=== PATIENT | male | born 1945 | race Caucasian/White ===

== ENCOUNTER 2017-04-17 15:09 | Inpatient (IN) | payer OTHER ==
[~2017-04-17] VITALS: Ht 170.2 cm; Wt 100.0 kg
[2017-04-17 15:13] VITALS: Ht 170.2 cm; Wt 100.0 kg
[2017-04-17 15:44] LABS: ADD SCAN DIFF NO
[2017-04-17 15:49] LABS: BASOPHILS % 0.4 % (0.0-2.0); EOSINOPHILS # 0.1 10^3/ul (0.0-0.5); EOSINOPHILS % 1.8 % (0.0-7.0); HEMATOCRIT 44.8 % (42.0-52.0); HEMOGLOBIN 15.8 g/dl (14.0-18.0); LYMPHOCYTES # 1.9 10^3/ul (0.8-2.9); LYMPHOCYTES % 34.4 % (15.0-51.0); MEAN CORPUSCULAR HEMOGLOBIN 29.8 pg (29.0-33.0); MEAN CORPUSCULAR HGB CONC 35.3 g/dl (32.0-37.0); MEAN CORPUSCULAR VOLUME 84.5 fl (82.0-101.0); MEAN PLATELET VOLUME 11.3 fl (7.4-10.4); MONOCYTE # 0.5 10^3/ul (0.3-0.9); MONOCYTES % 8.6 % (0.0-11.0); NEUTROPHILS % 54.3 % (39.0-77.0); PLATELET COUNT 150 10^3/UL (140-415); RED CELL DISTRIBUTION WIDTH 12.4 % (11.5-14.5); WHITE BLOOD COUNT 5.5 10^3/ul (4.8-10.8)
[2017-04-17 16:08] LABS: INR 0.93; PARTIAL THROMBOPLASTIN TIME 25.5 Sec (25.0-35.0); PROTIME 12.5 Sec (12.2-14.2)
[2017-04-17] MEDS ORDERED: SOD CHLORIDE 0.9% 100 ML ONE (16:12)
[2017-04-17] MEDS ORDERED: IODIXANOL LOCM 100 ML BTL ONE (16:12)
--- NOTE | 2017-04-17 16:21 | RADRPT ---
PROCEDURE: Chest Radiograph. CLINICAL INDICATION: Stroke. TECHNIQUE: Single frontal chest radiograph. COMPARISON: None available FINDINGS: The cardiomediastinal silhouette is within normal limits. No infiltrate or effusion is seen. Th e bones are intact. IMPRESSION: 1. Unremarkable chest radiograph. RPTAT: KK .Matty Klein MD, MD Date Time Electronically viewed and signed by .Matty Klein MD, on 04/17/2017 16:21 .B/
[2017-04-17 16:23] LABS: ANION GAP 18 (8-16); BLOOD UREA NITROGEN 11 mg/dl (7-20); CALCIUM 10.4 mg/dl (8.4-10.2); CARBON DIOXIDE 25 mmol/L (21-31); CHLORIDE 109 mmol/L (97-110); CREATININE 0.93 mg/dl (0.61-1.24); GLUCOSE 225 mg/dl (70-220); POTASSIUM 3.9 mmol/L (3.5-5.1); SODIUM 148 mmol/L (135-144)
[2017-04-17 16:37] LABS: TROPONIN-I < 0.012 ng/ml (0.00-0.12)
[2017-04-17] MEDS ORDERED: SOD CHLORIDE 0.9% 500 ML IV STA (16:41)
[2017-04-17] MEDS ORDERED: GABA300C16 PO (16:42)
[2017-04-17] MEDS ORDERED: FENO54TA7 PO (16:43)
--- NOTE | 2017-04-17 16:43 | RADRPT ---
PROCEDURE: CT Brain without. CLINICAL INDICATION: Right sided facial droop and right-sided numbness. TECHNIQUE: A CT of the brain was performed on multidetector high-resolution CT scanner utilizing a xial sections from the skull base through the vertex without contrast. The scan was reviewed in sof t tissue brain and high frequency resolution bone algorithm windows. Images were reviewed on a high -resolution PACS workstation. One or more the following does reduction techniques were utilized: Aut omated exposure control, adjustment of the mA/ or kV according to patient's size, or use of iterativ e reconstruction technique. The exam CTDI = 42.16 mGy and the DLP = 720.23 mGy-cm. COMPARISON: None available. FINDINGS: The ventricles and sulci are mildly prominent indicative of volume loss. There is no intracranial he morrhage, mass effect or midline shift. No abnormal intra-axial or extra-axial fluid collections ar e seen. The lancaster/white matter differentiation is preserved. There is a dural-based isodense mass overlying left frontal lobe measuring 13 x 5 x 15 mm (AP x durham sverse x craniocaudal) which may represent a meningioma. Partially empty sella is noted. There are mild scattered foci of hypoattenuation in the white matter, which are nonspecific in etiol ogy but likely reflect chronic small vessel ischemic changes. There are mild intracranial vascular calcifications consistent with atherosclerosis. The visualized paranasal sinuses are essentially brandi ar. Postsurgical changes of prior left frontal craniotomy are noted. IMPRESSION: 1. No acute intracranial hemorrhage, transcortical infarction or mass effect. Please note MRI is mo re sensitive for detection of acute ischemia and can be obtained as clinically warranted. 2. Mild intracranial atherosclerosis and chronic small vessel ischemic changes. 3. Left frontal 15 mm dural-based mass which may represent a meningioma. Brain MRI with contrast ca n be obtained for further evaluation. 4. Partially empty sella. 5. Mild generalized cerebral volume loss. A call report was made and above findings were discussed and acknowledged by Sharonda Acharya on 04/17/2017 4:38 PM . RPTAT: UU .Farrudolph Bailon MD, MD Date Time Electronically viewed and signed by .Corby Bailon MD, MD on 04/17/2017 16:43 .N/
[2017-04-17] MEDS ORDERED: ASPI-664 PO (16:44)
[2017-04-17] MEDS ORDERED: ALPR0.5T6 PO (16:45)
[2017-04-17] MEDS ORDERED: DOXA2TAB PO (16:45)
[2017-04-17] MEDS ORDERED: METF1000 PO (16:47)
[2017-04-17] MEDS ORDERED: LEVE500T8 PO (16:47)
[2017-04-17] MEDS ORDERED: ZOLP10TA5 PO (16:47)
[2017-04-17] MEDS ORDERED: METO-407 PO (16:48)
[2017-04-17] MEDS ORDERED: GLIP-95 PO (16:48)
[2017-04-17] MEDS ORDERED: SIMV40TA2 PO (16:49)
[2017-04-17] MEDS ORDERED: LEVO125T75 PO (16:49)
[2017-04-17] MEDS ORDERED: OMEP20CA16 PO (16:50)
[2017-04-17] MEDS ORDERED: ALBU18HF INHALATION (16:51)
--- NOTE | 2017-04-17 16:56 | RADRPT ---
PROCEDURE: CTA head and neck CLINICAL INDICATION: Right sided facial droop, right-sided numbness. TECHNIQUE: The study was performed utilizing multidetector CT scanner. Direct thin section axial s ections were obtained through the head and neck after the uneventful administration of 100 cc of Vis ipaque 320 nonionic intravenous contrast material. Coronal and sagittal as well as maximal intensit y projection reformations were obtained. 3-D images were made. The images were reviewed on a PACS w orkstation. One or more the following does reduction techniques were utilized: Automated exposure co ntrol, adjustment of themA/ or kV according to patient's size, or use of iterative reconstruction te chnique. The total CTDIvol is 17.97, 57.75 mGy and the DLP is 776.92 mGy-cm. COMPARISON: Brain CT of the same day. FINDINGS: CTA NECK: The origins of the great vessels off the aortic arch are patent without significant stenosis. Mild calcified and noncalcified atherosclerotic plaques are noted involving left carotid bulb without sig nificant stenosis by NASCET criteria. The remainder of common carotid and internal carotid arteries are patent without significant stenosis by NASCET criteria. Direct measurements of vessel diameters was made in reference to measurements of the distal internal carotid artery diameter. The vertebral arteries are also patent without high-grade stenosis. CTA BRAIN: There are atherosclerosis calcifications of cavernous and supraclinoid segments of the internal dickerson tid arteries without significant stenosis. The petrous segments of internal carotid arteries are pat ent without significant stenosis. The proximal middle cerebral arteries and anterior cerebral arteri es are patent without significant stenosis. The intracranial vertebral arteries, basilar artery, an d posterior cerebral arteries are also unremarkable without significant stenosis. No aneurysm or va scular malformation is identified. Dural-based 15 mm left frontal mass seen on prior CT demonstrates mild homogeneous enhancement which likely represents a meningioma. IMPRESSION: 1. Mild calcified and noncalcified atherosclerotic plaques involving left carotid bulb without sig nificant stenosis by NASCET criteria. 2. Mild intracranial atherosclerotic calcifications. 3. Otherwise no significant stenosis of major intracranial and neck arteries. 4. Images enhancing 15 mm dural-based left frontal mass which likely represents a meningioma. A call report was made and above findings were discussed and acknowledged by Sharonda Acharya on 04/17/2017 4:38 PM. RPTAT: UU .Corby Bailon MD, MD Date Time Electronically viewed and signed by .Corby Bailon MD, MD on 04/17/2017 16:56 .N/
[2017-04-17] MEDS ORDERED: ACETAMINOPHEN 325 MG TAB PO PRN (17:30)
[2017-04-17] MEDS ORDERED: ASPIRIN 81 MG TAB PO ONE (17:30)
[2017-04-17] MEDS ORDERED: ONDANSETRON 4 MG INJ IV PRN (17:30)
[2017-04-17] MEDS ORDERED: NACL 0.9% 3 ML SYG IV SCH (17:30)
--- NOTE | 2017-04-17 17:40 | HP ---
Date/Time of Note Date/Time of Note DATE: 04/17/17 TIME: 17:40 Assessment/Plan VTE Prophylaxis VTE Prophylaxis Intervention: SCD's Assessment/Plan Assessment/Plan 71 yo M with multiple risk factors for cerebrovascular disease (htn, dm, HL), admitted for an episode of R sided weakness and facial droop concerning for TIA v small CVA PLAN -tele monitoring -MRI brain, MRA neck -TTE -lipids -a1c -cont home asa -uptitrate statin to atorva 40, cont home tricor #HL: statin change as above, cont home fibrate #HTN: cont home meds #DM2: hold oral agents, SSI and accuchecks cont home neurontin #h/o meningioma: cont home AED #hypothyroid: cont home synthroid ?insomina: cont home ambien cardiac diet consider neuro consult in AM if source of event unclear prophx: SQH, SCDs HPI/ROS Admit Date/Time Admit Date/Time Hx of Present Illness 71 yo male with a history of diabetes, hypertension, previous TIA ~2 mos ago, and left-sided meningioma status post craniotomy 10 years ago presented with an episode of R sided facial, arm and leg weakness. Symptoms began around 10am, by the time pt presented to the ER this afternoon his symptoms had improved a great deal No fevers or chills. Pt's main concern at this time is the wellbeing of his dogs while he is in the hospital ROS 10pROS neg except as per HPI PMH/Family/Social Past Medical History HTN, DM2 with neuropathy, HL, h/o TIA, h/o meningioma, hypothyroid, insomnia Past Surgical History sp meningioma resection Social History lives alone in the community, has 2 dogs Smoking Status: Never smoker Exam/Review of Systems Vital Signs Vitals Vital Signs Date Time Temp Pulse Resp B/P Pulse Ox O2 Delivery O2 Flow Rate FiO2 04/17/17 15:13 98.1 79 20 159/79 99 Exam Exam nad, very pleasant, +mild R sided facial droop CN 2-12 intact-->smile symmetric 5/5 strength bl U and LEs, sensorium grossly intact no carotid bruits bl rrr no mrg lungs clear abd soft no rashes no le edema ED imaging and labs reviewed. Brain imaging with evidence of previous meningioma Labs Result Diagram: 04/17/17 1540 04/17/17 1540 Medications Medications Current Medications Aspirin (Aspirin) 81 mg DAILY PO ; Start 04/18/17 at 09:00; Status UNV Heparin Sodium (Porcine) (Heparin (5000 Units/0.5 ml)) 5,000 unit Q8 SC ; Start 04/17/17 at 22:00; Status UNV FRANSISCA PIZARRO MD Apr 17, 2017 17:40
--- NOTE | 2017-04-17 17:55 | ERA ---
ER Documentation Chief Complaint Date/Time DATE: 04/17/17 TIME: 17:45 Chief Complaint RIGHT FACIAL DROOP ONSET IN THE MORNING, RIGHT LEG, ARM WEAKNESS, ONSET 1 HPI 71-year-old male with a history of diabetes, hypertension, and left-sided meningioma status post craniotomy 10 years ago presenting with right-sided weakness and numbness. He also has right-sided facial weakness and tingling. His symptoms started around 9:30 AM when he found out he was being evicted from his apartment. He went to sit on the couch and tried to relax but his symptoms did not resolve. He drove himself to the hospital. Currently he says that his speech and his right leg weakness and numbness have improved, however he feels very weak in his right arm. He denies any associated headache but has had blurry vision since last night. No nausea, vomiting, fever, chills, dysuria. No recent illnesses. He states that a few months ago he had similar symptoms and was evaluated in the ED but discharged home. ROS All systems reviewed and are negative except as per history of present illness. Medications Home Meds Reported Medications Albuterol Sulfate* (Ventolin HFA*) 18 Gm Hfa.aer.ad, 2 PUFF INHALATION Q4H, #1 INHALER 04/17/17 Omeprazole* (Omeprazole*) 20 Mg Capsule.dr, 20 MG PO DAILY Y for QAM, #30 CAP 04/17/17 Levothyroxine Sodium* (Levothyroxine Sodium*) 125 Mcg Tablet, 125 MCG PO BEFORE BREAKFAST, #30 TAB 04/17/17 Simvastatin* (Zocor*) 40 Mg Tablet, 40 MG PO DAILY, #30 TAB 04/17/17 Metoprolol Tartrate* (Lopressor*) 100 Mg Tablet, 100 MG PO BID, #60 TAB 04/17/17 Glipizide* (Glipizide*) 10 Mg Tablet, 10 MG PO AC BREAKFAST DINNER, TAB 04/17/17 Zolpidem Tartrate* (Zolpidem Tartrate*) 10 Mg Tablet, 10 MG PO QHS Y for INSOMNIA, #30 TAB 04/17/17 Metformin Hcl* (Metformin Hcl*) 1,000 Mg Tablet, 1000 MG PO WITH BREAKFAST DINNE , #60 TAB 04/17/17 Levetiracetam* (Levetiracetam*) 500 Mg Tablet, 500 MG PO BID, TAB TAKE 1 TAB-QAM AND 2 TAB-QHS 04/17/17 Alprazolam* (Alprazolam*) 0.5 Mg Tablet, 0.5 MG PO Q8H Y for ANXIETY, TAB 04/17/17 Doxazosin Mesylate* (Doxazosin Mesylate*) 2 Mg Tablet, 4 MG PO DAILY, TAB 04/17/17 Aspirin* (Aspirin* EC) 81 Mg Tablet.dr, 81 MG PO DAILY, TAB 04/17/17 Fenofibrate, Micronized (Fenofibrate) 54 Mg Tablet, 54 MG PO BID, TAB 04/17/17 Gabapentin* (Gabapentin*) 300 Mg Capsule, 600 MG PO QHS, #180 CAP 04/17/17 Allergies Allergies: Coded Allergies: No Known Allergy (Verified , 04/17/17) PMhx/Soc History of Surgery: Yes (BRAIN TUMOR REMOVAL) Anesthesia Reaction: No Hx Neurological Disorder: Yes (TIA 2 MONTHS AGO) Hx Respiratory Disorders: No Hx Cardiac Disorders: Yes (HTN) Hx Psychiatric Problems: No Hx Miscellaneous Medical Probl: Yes (DM, THYROID, ABDOMINAL HERNIA) Hx Alcohol Use: No Hx Substance Use: No Hx Tobacco Use: No Smoking Status: Never smoker FmHx Family History: diabetes Physical Exam Vitals Vital Signs Date Time Temp Pulse Resp B/P Pulse Ox O2 Delivery O2 Flow Rate FiO2 04/17/17 15:13 98.1 79 20 159/79 99 Physical Exam Const: Well-appearing, nontoxic, no apparent distress Head: Atraumatic Eyes: Normal Conjunctiva, PERRLA, EOMI ENT: Normal External Ears, Nose and Mouth. Neck: Full range of motion..~ No meningismus. Resp: Clear to auscultation bilaterally Cardio: Regular rate and rhythm, no murmurs Abd: Soft, non tender, non distended. Normal bowel sounds Skin: No petechiae or rashes Back: No midline or flank tenderness Ext: No cyanosis, or edema Neur: Awake and alert and oriented 3, right-sided mild facial droop, right upper extremity and right lower extremity strength 4+ out of 5. Left upper and lower extremity strength 5 out of 5. Sensations intact to painful stimuli. Psych: Normal Mood and Affect Result Diagram: 04/17/17 1540 04/17/17 1540 Results 24 hrs Laboratory Tests Test 04/17/17 15:40 White Blood Count 5.510^3/ul Red Blood Count 5.3010^6/ul Hemoglobin 15.8g/dl Hematocrit 44.8% Mean Corpuscular Volume 84.5fl Mean Corpuscular Hemoglobin 29.8pg Mean Corpuscular Hemoglobin Concent 35.3g/dl Red Cell Distribution Width 12.4% Platelet Count 73170^3/UL Mean Platelet Volume 11.3fl Neutrophils % 54.3% Lymphocytes % 34.4% Monocytes % 8.6% Eosinophils % 1.8% Basophils % 0.4% Nucleated Red Blood Cells % 0.0/100WBC Neutrophils # 3.010^3/ul Lymphocytes # 1.910^3/ul Monocytes # 0.510^3/ul Eosinophils # 0.110^3/ul Basophils # 0.010^3/ul Nucleated Red Blood Cells # 0.010^3/ul Prothrombin Time 12.5Sec Prothrombin Time Ratio 1.0 INR International Normalized Ratio 0.93 Activated Partial Thromboplast Time 25.5Sec Sodium Level 148mmol/L Potassium Level 3.9mmol/L Chloride Level 109mmol/L Carbon Dioxide Level 25mmol/L Anion Gap 18 Blood Urea Nitrogen 11mg/dl Creatinine 0.93mg/dl Glucose Level 225mg/dl Hemoglobin A1c 7.4% Calcium Level 10.4mg/dl Troponin I < 0.012ng/ml Current Medications Medications (Trade) Dose Ordered Sig/Cesar Route PRN Reason Start Time Stop Time Status Last Admin Dose Admin IV Flush 10 ml 10 ml STK-MED ONCE .ROUTE 04/17/17 16:12 04/17/17 16:13 DC 04/17/17 16:53 Sodium Chloride (NS) 100 ml @ ud STK-MED ONCE .ROUTE 04/17/17 16:12 04/17/17 16:13 DC 04/17/17 16:53 Iodixanol 100 ml 100 ml STK-MED ONCE .ROUTE 04/17/17 16:12 04/17/17 16:13 DC 04/17/17 16:53 Sodium Chloride (NS) 500 ml @ 500 mls/hr Q1H STAT IV 04/17/17 16:41 04/17/17 17:40 DC 04/17/17 16:51 Ondansetron HCl (Zofran Inj) 4 mg ER BRIDGE PRN IV NAUSEA AND/OR VOMITING 04/17/17 17:30 04/18/17 17:29 Acetaminophen (Tylenol Tab) 650 mg ER BRIDGE PRN PO MILD PAIN/FEVER 04/17/17 17:30 04/18/17 17:29 Aspirin (Aspirin) 324 mg ONCE ONCE PO 04/17/17 17:30 04/17/17 17:31 DC 04/17/17 17:38 IV Flush (NS 3 ml) 3 ml PER PROTOCOL IV 04/17/17 17:30 UNV Aspirin (Aspirin) 81 mg DAILY PO 04/18/17 09:00 UNV Heparin Sodium (Porcine) (Heparin (5000 Units/0.5 ml)) 5,000 unit Q8 SC 04/17/17 22:00 UNV Albuterol (Proventil (O.r. Use Only)) 2 puff Q4H INH 04/17/17 18:00 UNV Alprazolam (Xanax) 0.5 mg Q8H PRN PO ANXIETY 04/17/17 18:00 UNV Doxazosin Mesylate (Cardura) 4 mg DAILY PO 04/18/17 09:00 UNV Gabapentin (Neurontin) 600 mg QHS PO 04/17/17 21:00 UNV Levetiracetam (Keppra) 500 mg BID PO 04/17/17 21:00 UNV Levothyroxine Sodium (Synthroid) 125 mcg BEFORE BREAKFAST PO 04/18/17 07:00 UNV Metoprolol Tartrate (Lopressor) 100 mg BID PO 04/17/17 21:00 UNV Zolpidem Tartrate (Ambien) 10 mg QHS PRN PO INSOMNIA 04/17/17 18:00 UNV Miscellaneous Information 54 mg BID PO 04/17/17 21:00 UNV Miscellaneous Information 20 mg DAILY PRN PO QAM 04/17/17 18:00 UNV Miscellaneous Information 40 mg DAILY PO 04/18/17 09:00 UNV Procedures/MDM EMERGENT LABS AND DIAGNOSTIC STUDIES: Lab Results above were reviewed and interpreted by me. CBC unremarkable, BMP shows hyperglycemia and hypernatremia, troponin normal, elevated hemoglobin A1c 12-lead EKG was interpreted by Fadia Lawrence MD: Normal Sinus Rhythm Normal axis Normal intervals No acute ST or T wave changes suggestive of acute ischemia or STEMI. Radiology Results as interpreted by Radiology below were reviewed by Abraham Lawrence MD: Chest x-ray shows no acute abnormalities CT head shows no acute abnormality CTA head and neck: IMPRESSION: 1. Mild calcified and noncalcified atherosclerotic plaques involving left carotid bulb without significant stenosis by NASCET criteria. 2. Mild intracranial atherosclerotic calcifications. 3. Otherwise no significant stenosis of major intracranial and neck arteries. 4. Images enhancing 15 mm dural-based left frontal mass which likely represents a meningioma. .Corby Bailon MD, MD Date Time Electronically viewed and signed by .Corby Bailon MD, MD on 04/17/2017 16: 56 Initial Nursing notes reviewed. Previous Medical Records requested via the Electronic Health Record. EMERGENCY DEPARTMENT COURSE / MEDICAL DECISION MAKING: Patient is outside the window for TPA. There is no large vessel occlusion seen on the CTA that would be amenable to intervention. IV fluids were given. CT head showed no acute bleed so aspirin was given. Patient's blood pressure is elevated but there is no evidence of hypertensive emergency. Patient's neurologic symptoms are concerning for acute TIA/stroke, infectious, or metabolic cause and will require inpatient workup and continuous monitoring. Further w/u for will be deferred to the inpatient team. Neuro Critical Care: Critical Care Time: 35 minutes Treatments/Evaluations: Continuous neurologic and cardiovascular monitoring for deterioration of neurologic function and complications, while obtaining immediate neurologic imaging. Considerations made for TPA and invasive therapy with discussions with family. TPA Criteria Assessment: Patient is not a TPA candidate because: Last known normal > 3 hours Minimal improving symptoms Accepting Care Team: Current data and ongoing care discussed. Time: Time of admission Primary Provider: [XOXOXO] Consulting: [XOXOXO] Outstanding Data: none Departure Diagnosis: Primary Impression: Acute right-sided weakness Additional Impression: Facial droop Condition: Serious JOSUÉ LAWRENCE MD Apr 17, 2017 17:55
[2017-04-17] MEDS ORDERED: ALPRAZOLAM 0.5 MG TAB PO PRN (18:00)
[2017-04-17] MEDS ORDERED: ZOLPIDEM 5 MG TAB PO PRN (18:00)
[2017-04-17] MEDS ORDERED: NON-FORMULARY/PATIENT OWN MED (Omeprazole* 20 MG) PO PRN (18:00)
[2017-04-17 19:00] VITALS: TEMP 98.9
[2017-04-17 19:46] VITALS: BP 140/81; RESP 18
[2017-04-17 20:24] VITALS: PULSE 67
[2017-04-17] MEDS: ALBUTEROL 18 GM INHALER INH SCH (21:00)
[2017-04-17] MEDS ORDERED: GABAPENTIN 300 MG CAP PO SCH (21:00)
[2017-04-17] MEDS ORDERED: ATORVASTATIN 40 MG TAB PO SCH (21:38)
[2017-04-17] MEDS ORDERED: GLUCOSE GEL 15 GRAM TUBE BUCCAL PRN (22:00)
[2017-04-17] MEDS ORDERED: GLUCOSE GEL 15 GRAM TUBE PO PRN ×2 (22:00)
[2017-04-17] MEDS ORDERED: GLUCAGON 1 MG INJ IM PRN (22:00)
[2017-04-17] MEDS: HEPARIN 5,000 UNIT/0.5 ML VIAL SC SCH (22:00)
[2017-04-17] MEDS ORDERED: DEXTROSE 50% 50 ML SYRINGE IV PRN ×2 (22:00)
[2017-04-17] MEDS ORDERED: DOXAZOSIN 4 MG TAB PO SCH (22:18)
[2017-04-17] MEDS: INSULIN ASPART [NOVOLOG] 3 ML PEN SC SCH (22:19)
[2017-04-17] MEDS: LEVETIRACETAM 500 MG TAB PO SCH (22:22)
[2017-04-17] MEDS: FENOFIBRATE 48 MG TAB PO SCH (22:22)
[2017-04-17] MEDS: METOPROLOL 100 MG TAB PO SCH (22:23)
[2017-04-17] MEDS ORDERED: glipiZIDE 10 MG TAB PO ONE (22:30)
[2017-04-18] VITALS (7 sets, daily range): BP systolic 129–146; BP diastolic 65–81; PULSE 59–69; RESP 18–19
--- NOTE | 2017-04-18 01:18 | RADRPT ---
PROCEDURE: MR Brain without and with contrast. CLINICAL INDICATION: Neurologic deficit, suspected stroke. TECHNIQUE: An MRI of the brain was performed without and with intravenous contrast. Coronal T2* G RE, axial T2 FLAIR, axial T2, sagittal T1 FLAIR, axial T1 FLAIR, axial T1 FSPGR, and axial and coron al postcontrast fat suppressed T1-weighted images were obtained. 10 cc ProHance were administered du ring examination without complication. The examination was performed on a 3 [facility] MRI scanner. COMPARISON: Brain CT dated 04/17/2017 FINDINGS: There is mild generalized volume loss without evidence of hydrocephalus or mass effect. No acute in tracranial hemorrhage or extra-axial collection is seen. There is no acute infarction. The white m atter is normal in signal. No abnormal gradient echo susceptibility artifact is identified within t he brain parenchyma. There are normal flow voids in the proximal intracranial arteries. Incidental note is made of a partially empty sella turcica.. There is a 1.6 x 0.7 cm enhancing dural based lesi on along the left frontal lobe, consistent with a meningioma. There is mild mucosal thickening in the right maxillary sinus. The patient is status post right-kerline ed lens replacement surgery. The extracranial soft tissues and osseous structures are unremarkable. IMPRESSION: 1. No acute intracranial pathology. 2. Mild generalized volume loss. 3. 1.6 x 0.7 cm meningioma along the left frontal lobe, without mass effect. RPTAT: HTAR .Michael Underwood MD, Date Time Electronically viewed and signed by .Michael Underwood MD, on 04/18/2017 01:18 .R/
[2017-04-18] MEDS: ALBUTEROL 18 GM INHALER INH SCH ×4 (01:21→12:44)
--- NOTE | 2017-04-18 01:25 | RADRPT ---
PROCEDURE: MRA of the head and neck without and with contrast CLINICAL INDICATION: Neurologic deficit. TECHNIQUE: 2-D [id number] MRA of the neck was performed. A contrast-enhanced enhanced subtrac tion angiogram of the head and neck was also performed. 10 cc intravenous ProHance were administered during examination without complication. The images were obtained on a 3 [facility] MRI scanner COMPARISON: CTA of the neck dated 04/17/2017. FINDINGS: No hemodynamically significant stenosis is identified along the cervical carotid and vertebral arter ies. Flow artifact is seen at the right carotid bulb. There is no evidence for dissection or aneurys mal dilatation of these vessels. The intracranial internal carotid arteries are widely patent. The bilateral ACAs and MCAs are widel y patent. The vertebrobasilar system is patent. The lamp cleaner street light are incompletely imaged. The cerebral ar teries are not well seen. No aneurysm or vascular malformation is identified. IMPRESSION: 1. No hemodynamically significant stenosis along the major cervical and intracranial arteries, alth ough the lamp cleaner street light are incompletely visualized. 2. No evidence of aneurysm, dissection, or vascular malformation RPTAT: HTAR .Michael Underwood MD, Date Time Electronically viewed and signed by .Michael Underwood MD, on 04/18/2017 01:24 .R/
[2017-04-18] MEDS ORDERED: ACCUCHECK AT 2AM (Patients on SS coverage) XX SCH (02:00)
--- NOTE | 2017-04-18 02:25 | PQ ---
Date/Time of Note Date/Time of Note DATE: 04/18/17 TIME: 02:25 Physician Query I was called regarding this patient. 71yo M came with left arm and leg weakness , and left facial droop since 9:30am, head CT okay, h/o meningioma also seen on CT, also had CTA demonstrated no significant stenosis. Attending asked whether MRI Brain was still necessary after CTA was completed. I explained that MRI Brain is still necessary to confirm stroke and evaluate the pattern of stroke, which could promvide additional information regarding etiology and affect if additional testing is necessary. Transthoracic echocardiogram is also recommended. No further consult was requested. YENI WINTER Apr 18, 2017 02:25
[2017-04-18] MEDS: HEPARIN 5,000 UNIT/0.5 ML VIAL SC SCH (05:50)
[2017-04-18] MEDS ORDERED: LEVOTHYROXINE 125 MCG TAB PO SCH (07:00)
[2017-04-18] MEDS ORDERED: INSULIN ASPART [NOVOLOG] 3 ML PEN SC SCH (08:00)
[2017-04-18] MEDS: INSULIN ASPART [NOVOLOG] 3 ML PEN SC SCH ×2 (08:00→12:00)
[2017-04-18 08:04] LABS: CHOL/HDL RATIO 3.5 RATIO
[2017-04-18] MEDS ORDERED: ATORVASTATIN 20 MG TAB PO SCH (09:00)
[2017-04-18] MEDS ORDERED: ASPIRIN 81 MG TAB PO SCH (09:00)
[2017-04-18] MEDS ORDERED: ATORVASTATIN 40 MG TAB PO SCH (09:00)
[2017-04-18] MEDS ORDERED: DOXAZOSIN 4 MG TAB PO SCH (09:00)
[2017-04-18] MEDS: LEVETIRACETAM 500 MG TAB PO SCH (09:35)
[2017-04-18] MEDS: FENOFIBRATE 48 MG TAB PO SCH (09:35)
[2017-04-18] MEDS: METOPROLOL 100 MG TAB PO SCH (09:35)
--- NOTE | 2017-04-18 12:34 | PDOCDIS ---
Discharge Instructions DIAGNOSIS Discharge Diagnosis: 1. TIA 2. meningioma 3. diabetes CONDITION Patient Condition: Stable HOME CARE INSTRUCTIONS: Special Diet: LOW FAT LOW CHOLES 2GM NA, carbohydrate controlled FOLLOW UP/APPOINTMENTS Appointments 1. Follow up with Dr. Jasmin Melissa in one week Jasmin Melissa MD Specialty : Neurology Office Address [id number] [address] Office OTHER ORDERS: Other Orders: 1. Call 911 if you have worsening slurred speech, facial droop, or extremity weakness DAHLIA DIGGS Apr 18, 2017 12:34
[2017-04-18] MEDS ORDERED: ATOR40TA68 PO (12:36)
[2017-04-18] MEDS ORDERED: ASPI-664 PO (12:36)
--- NOTE | 2017-04-18 13:19 | DS ---
Date/Time of Note Date/Time of Note DATE: 04/18/17 TIME: 13:14 Discharge Summary Admission/Discharge Info Admit Date/Time Apr 17, 2017 at 17:29 Discharge Date/Time Final Diagnosis 1. TIA 2. meningioma 3. diabetes 3. hypertension 4. HLD 5. hypothyroidism Patient Condition: Stable Hospital Course This is a 71-year-old male with history of diabetes, hypertension, previous TIA 2 months ago, left-sided meningioma status post craniotomy 10 years ago, came to [facility] due to reports of right-sided facial weakness and right upper extremity and lower extremity weakness as well. Patient did report symptoms occurred 10 AM on the day of admission. He subsequently went to [facility] for further evaluation. Upon examination he did have a CT scan of his head that showed no acute intracranial hemorrhage or transcortical infarction or mass-effect. There was seen a left frontal 50 mm dural based mass suspect for meningioma. Of note he did report having history of this and that he had a craniotomy for this issue roughly 10 years ago. Further MRI of the brain was done for further delineation of meningioma. He did again show no acute intracranial pathology but did drip demonstrate a 1.6 x 0.7 cm meningioma on the left frontal lobe. We did discuss with neurologist and no surgical intervention was to be done at this time. Patient did report that his symptoms resolved within 24 hours and likely this was secondary to TIA for his symptoms. He was instructed to follow-up with neurologist as outpatient (Dr. Jasmin Melissa) in one week. during his course of stay he did improve. He was otherwise optimized medically. For his dyslipidemia he was to need on statin medication and for his antihypertensives he was resumed on his beta-kahlil medication. He did have hypothyroidism as well and was resumed on his home Synthroid. As previously mentioned during his course of stay he did improve. He was noted with no motor deficit on bilateral upper or lower examinees. His facial droop also had resolved. The plan of care was discussed with the patient and patient did verbalizes understanding. On the day of discharge patient was in stable condition discharge process time: 40 minutes Discussed plan of care with Dr. Hassan [facility] Active Scripts Atorvastatin* (Atorvastatin*) 40 Mg Tablet, 40 MG PO QHS for 30 Days, TAB Prov:DAHLIA DIGGS 04/18/17 Aspirin* (Aspirin* EC) 81 Mg Tablet.dr, 81 MG PO DAILY for 30 Days, TAB Prov:DAHLIA DIGGS 04/18/17 Reported Medications Albuterol Sulfate* (Ventolin HFA*) 18 Gm Hfa.aer.ad, 2 PUFF INHALATION Q4H, #1 INHALER 04/17/17 Omeprazole* (Omeprazole*) 20 Mg Capsule.dr, 20 MG PO DAILY Y for QAM, #30 CAP 04/17/17 Levothyroxine Sodium* (Levothyroxine Sodium*) 125 Mcg Tablet, 125 MCG PO BEFORE BREAKFAST, #30 TAB 04/17/17 Simvastatin* (Zocor*) 40 Mg Tablet, 40 MG PO DAILY, #30 TAB 04/17/17 Metoprolol Tartrate* (Lopressor*) 100 Mg Tablet, 100 MG PO BID, #60 TAB 04/17/17 Glipizide* (Glipizide*) 10 Mg Tablet, 10 MG PO AC BREAKFAST DINNER, TAB 04/17/17 Zolpidem Tartrate* (Zolpidem Tartrate*) 10 Mg Tablet, 10 MG PO QHS Y for INSOMNIA, #30 TAB 04/17/17 Metformin Hcl* (Metformin Hcl*) 1,000 Mg Tablet, 1000 MG PO WITH BREAKFAST DINNE , #60 TAB 04/17/17 Levetiracetam* (Levetiracetam*) 500 Mg Tablet, 500 MG PO BID, TAB TAKE 1 TAB-QAM AND 2 TAB-QHS 04/17/17 Alprazolam* (Alprazolam*) 0.5 Mg Tablet, 0.5 MG PO Q8H Y for ANXIETY, TAB 04/17/17 Doxazosin Mesylate* (Doxazosin Mesylate*) 2 Mg Tablet, 4 MG PO DAILY, TAB 04/17/17 Fenofibrate, Micronized (Fenofibrate) 54 Mg Tablet, 54 MG PO BID, TAB 04/17/17 Gabapentin* (Gabapentin*) 300 Mg Capsule, 600 MG PO QHS, #180 CAP 04/17/17 Follow-up Plan CONDITION Patient Condition: Stable HOME CARE INSTRUCTIONS: Special Diet: LOW FAT LOW CHOLES 2GM NA, carbohydrate controlled FOLLOW UP/APPOINTMENTS Appointments 1. Follow up with Dr. Jasmin Melissa in one week Jasmin Melissa MD Specialty : Neurology Office Address [id number] [place] [address] Office OTHER ORDERS: Other Orders: 1. Call 911 if you have worsening slurred speech, facial droop, or extremity weakness Primary Care Provider Pati Mustafa Np Pending Labs Laboratory Tests Test 04/17/17 15:40 04/18/17 06:30 04/18/17 08:01 04/18/17 12:40 White Blood Count 5.510^3/ul (4.8-10.8) Red Blood Count 5.3010^6/ul (4.70-6.10) Hemoglobin 15.8g/dl (14.0-18.0) Hematocrit 44.8% (42.0-52.0) Mean Corpuscular Volume 84.5fl (82.0-101.0) Mean Corpuscular Hemoglobin 29.8pg (29.0-33.0) Mean Corpuscular Hemoglobin Concent 35.3g/dl (32.0-37.0) Red Cell Distribution Width 12.4% (11.5-14.5) Platelet Count 39229^3/UL (140-415) Mean Platelet Volume 11.3fl (7.4-10.4) Neutrophils % 54.3% (39.0-77.0) Lymphocytes % 34.4% (15.0-51.0) Monocytes % 8.6% (0.0-11.0) Eosinophils % 1.8% (0.0-7.0) Basophils % 0.4% (0.0-2.0) Nucleated Red Blood Cells % 0.0/100WBC (0.0-0.0) Neutrophils # 3.010^3/ul (1.6-7.5) Lymphocytes # 1.910^3/ul (0.8-2.9) Monocytes # 0.510^3/ul (0.3-0.9) Eosinophils # 0.110^3/ul (0.0-0.5) Basophils # 0.010^3/ul (0.0-0.1) Nucleated Red Blood Cells # 0.010^3/ul (0.0-0.0) Prothrombin Time 12.5Sec (12.2-14.2) Prothrombin Time Ratio 1.0 INR International Normalized Ratio 0.93 Activated Partial Thromboplast Time 25.5Sec (25.0-35.0) Sodium Level 148mmol/L (135-144) Potassium Level 3.9mmol/L (3.5-5.1) Chloride Level 109mmol/L (97-110) Carbon Dioxide Level 25mmol/L (21-31) Anion Gap 18 (8-16) Blood Urea Nitrogen 11mg/dl (7-20) Creatinine 0.93mg/dl (0.61-1.24) Glucose Level 225mg/dl (70-220) Hemoglobin A1c 7.4% (0-5.9) Calcium Level 10.4mg/dl (8.4-10.2) Troponin I < 0.012ng/ml (0.00-0.12) Triglycerides Level 206mg/dl (0-149) Cholesterol Level 133mg/dl (100-200) LDL Cholesterol, Calculated 55mg/dl HDL Cholesterol 37mg/dl (31-75) Cholesterol/HDL Ratio 3.5RATIO Bedside Glucose 166mg/dL (70-220) 200mg/dL (70-220) DAHLIA DIGGS Apr 18, 2017 13:19
--- NOTE | 2017-04-19 12:42 | RADRPT ---
Echocardiogram Report Patient Name: CAYETANO SHRESTHA Gender: Male Date: 1945 Study Date: 18-Apr-2017 Evp Marketing: [employer] [facility] Location: [id number] Ref. Physician: FRANSISCA PIZARRO Quality: Adequate Procedures: Transthoracic echocardiogram with complete 2D, M-Mode, and doppler examination. Indications: Stroke. 2D/M Mode Doppler Measurement Value Normal Ranges Measurement Value Normal Ranges LVIDd 2D 4.7 3.5 - 5.6 cm AV Peak Pan 1.4 m/sec LVIDs 2D 2.4 2.1 - 4.1 cm AV Peak PG 8.0 mmHg FS 2D 48.9 % LVOT Peak Pan 1.1 m/sec LVPWd 2D 0.9 0.6 - 1.1 cm LVOT Peak PG 5.0 mmHg IVSd 2D 1.1 0.6 - 1.1 cm MV E Peak Pan 0.7 m/sec IVS/LVPW 2D 1.2 MV A Peak Pan 0.8 m/sec AoR Diam 2D 2.9 2.0 - 3.7 cm MV E/A 0.8 LA/Ao 2D 1 0 - 1 MV Decel Time 208 msec EDV 2D 105.0 cm3 MV E/A 0.8 ESV 2D 14.0 cm3 LA Dimen 2D 3.9 2.3 - 4.0 cm Findings Left Ventricle: Normal left ventricular systolic function. Normal left ventricular cavity size. Mild concentric left ventricular hypertrophy. Ejection fraction is visually estimated at 65 %. Tissue Doppler/Mitral Doppler indices are consistent with impaired relaxation (Stage I diastolic dysfunction). Right Ventricle: Normal right ventricular size. Normal right ventricular systolic function. Left Atrium: The left atrium is normal in size. Right Atrium: The right atrium is normal in size. Mitral Valve: Normal appearance and function of the mitral valve with trace physiologic regurgitation. Aortic Valve: Normal appearance of the aortic valve. No significant aortic stenosis or insufficiency. Tricuspid Valve: Normal appearance and function of the tricuspid valve with trace physiologic regurgitation. Pulmonic Valve: Pulmonic valve not well visualized. Pericardium: Normal pericardium with no significant pericardial effusion. Aorta: Normal aortic root. IVC: Normal size and normal respiratory collapse consistent with normal right atrial pressure. Conclusions 1.Normal left ventricular systolic function. Normal left ventricular cavity size. Mild concentric left ventricular hypertrophy. Ejection fraction is visually estimated at 65 %. Tissue Doppler/Mitral Doppler indices are consistent with impaired relaxation (Stage I diastolic dysfunction). 2.Normal right ventricular size. Normal right ventricular systolic function. 3.The left atrium is normal in size. 4.The right atrium is normal in size. 5.No significant valvular stenosis or regurgitation seen. 6.Normal pericardium with no significant pericardial effusion. Electronically Signed By: Jayesh Burleson 19-Apr-2017 12:41:05 -0700 Patient Name: CAYETANO SHRESTHA Study Date: 18-Apr-2017 [id number]
== END 2017-04-18 14:06 | disposition home or self-care (01) | DRG 69 ==
LOC: E/R 15:09 → MS4 17:29
PROVIDERS: ADMIT Internal Medicine; ATTEND Internal Medicine
DX: G45.9 Transient cerebral ischemic attack, unspecified (principal); I10 Essential (primary) hypertension; E11.9 Type 2 diabetes mellitus without complications; Z86.73 Personal history of transient ischemic attack (TIA), and cerebral infarction without residual deficits; Z86.011 Personal history of benign neoplasm of the brain; R29.810 Facial weakness; R53.1 Weakness; E03.9 Hypothyroidism, unspecified
CPT/HCPCS: 36415; 70450; 70496; 70498; 70549; 70553; 71010; 80048; 80061; 82962; 83036; 84484; 85025; 85610; 85730; 92610; 93005; 93306; 97161; J1644; J1815; J7040; Q9967

== ENCOUNTER 2018-08-08 22:08 | Emergency (ER) | END 2018-08-09 05:14 | disposition home or self-care (01) ==